=== PATIENT | female | born 1975 ===

== ENCOUNTER 2016-04-18 14:22 | Emergency (ER) | payer MEDICAID, OTHER ==
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
--- NOTE | 2016-04-18 17:35 | RADIOLOGY REPORT ---
A limited single portable view of the chest demonstrates the heart, vessels and lungs to be unremarkable. No infiltrate, fluid or pneumothorax is seen. IMPRESSION: Unremarkable limited single portable view of the chest. MTDD
== END 2016-04-18 15:29 | disposition home or self-care (01) ==
LOC: ER 14:22
DX: S20.319A Abrasion of unspecified front wall of thorax, initial encounter (principal); S20.219A Contusion of unspecified front wall of thorax, initial encounter; V47.6XXA Car passenger injured in collision with fixed or stationary object in traffic accident, initial encounter; Y92.413 State road as the place of occurrence of the external cause; Z74.3 Need for continuous supervision
CPT/HCPCS: 71010; 99284; A0425; A0429; G0390